=== PATIENT | male | born 1960 | race Caucasian/White ===

== ENCOUNTER → 2020-11-09 | Day surgery (SDC) | payer OTHER ==
[~2020-11-09] VITALS: Ht 172.7 cm; Wt 104.3 kg
[~2020-11-09] MED LIST: PERCOCET 5-3251 EACH PO
[2020-11-09 12:11] LABS: HCT 50.3 % (42.0-52.0); HGB 17.4 g/dl (13.2-18.0); MCH 30.8 pg (25.0-31.0); MCHC 34.6 g/dL (32.0-36.0); MPV 9.1 fL (6.0-9.5); RBC 5.65 M/uL (4.70-6.00); RDW 14.3 % (11.5-14.0); WBC 12.2 K/uL (4.0-10.5)
== END | disposition home or self-care (01) ==
LOC: FAS 08:00
PROVIDERS: Legal Medicine
DX: M24.612 Ankylosis, left shoulder (principal); M75.02 Adhesive capsulitis of left shoulder
CPT/HCPCS: 36415; 97162; 97530-GP; J2250; J2795; J7120